=== PATIENT | female | born 1945 | race Caucasian/White ===

== ENCOUNTER → 2017-04-09 | Outpatient (CLI) | payer MEDICARE, BC ==
--- NOTE | 2017-04-09 15:13 | RAD ---
DATE: 04/09/2017 EXAM: MAMMO BOWEN SCREENING BILATERAL HISTORY: 71-year-old female for routine screening mammogram. History of right and left breast biopsy with benign pathology in 1970s. COMPARISON: Prior mammogram from 2015 and 2014. This study was interpreted with the benefit of Computerized Aided Detection (CAD). FINDINGS: Breast Density: DENSE The breast Parenchyma is dense, which could reduce the sensitivity of mammography. Breast parenchyma level density D.. No suspicious calcifications, spiculated mass or architectural distortion. IMPRESSION: No suspicious findings. BI-RADS CATEGORY: 2 BENIGN FINDING(S) RECOMMENDED FOLLOW-UP: 12M 12 MONTH FOLLOW-UP PQRS compliance statement: Patient information was entered into a reminder system with a target due date 04/09/2018 for the next mammogram. Mammography is a sensitive method for finding small breast cancers, but it does not detect them all and is not a substitute for careful clinical examination. A negative mammogram does not negate a clinically suspicious finding and should not result in delay in biopsying a clinically suspicious abnormality. "Our facility is accredited by the [employer] Mammography [employer]."
== END | disposition home or self-care (01) ==
LOC: KCIC MAMMO 09:13
PROVIDERS: ATTEND Obstetrics & Gynecology
DX: Z12.31 Encounter for screening mammogram for malignant neoplasm of breast (principal)
CPT/HCPCS: 77063; G0202; 77067

== ENCOUNTER → 2017-09-09 | Outpatient (CLI) | payer MEDICARE, BC | END | disposition home or self-care (01) | LOC: KCIC 12:17 | DX: J98.11 Atelectasis (principal); R09.89 Other specified symptoms and signs involving the circulatory and respiratory systems; R05 Cough | CPT/HCPCS: 71046 ==

== ENCOUNTER → 2017-09-10 | Outpatient (CLI) | payer MEDICARE, BC | END | disposition home or self-care (01) | LOC: KCIC CT 11:20 | DX: S09.90XA Unspecified injury of head, initial encounter (principal); X58.XXXA Exposure to other specified factors, initial encounter; Y93.89 Activity, other specified; Y92.89 Other specified places as the place of occurrence of the external cause; Y99.8 Other external cause status | CPT/HCPCS: 70450 ==

== ENCOUNTER → 2017-09-16 | Outpatient (CLI) | payer MEDICARE, BC | END | disposition home or self-care (01) | LOC: KCIC 10:26 | DX: M41.85 Other forms of scoliosis, thoracolumbar region (principal); R91.8 Other nonspecific abnormal finding of lung field | CPT/HCPCS: 71046 ==

== ENCOUNTER → 2018-10-23 | Outpatient (CLI) | payer MEDICARE, BC ==
--- NOTE | 2018-10-23 14:58 | KCIC ---
EXAM: Bilateral digital screening mammogram with tomosynthesis. HISTORY: 73-year-old female presents for screening mammography. TECHNIQUE: Full-field digital craniocaudal and mediolateral oblique 2D and 3D tomosynthesis images of both breasts are obtained for evaluation. Computer aided detection with [employer] software version 9.3 was applied. COMPARISON: 04/09/2017 BREAST PARENCHYMAL DENSITY: Level D - Extremely dense. FINDINGS: There is no new suspicious mass, microcalcification or region of architectural distortion. There is stable areas of asymmetry and nodularity within both breasts. There are multiple benign calcifications. IMPRESSION: BI-RADS Category 2: Benign finding(s). RECOMMENDATION: Annual mammography is recommended. If your mammogram demonstrates that you have dense breast tissue, which could hide abnormalities, and if you have other risk factors for breast cancer that have been identified, you might benefit from supplemental screening tests that may be suggested by your ordering physician. Dense breast tissue, in and of itself, is a relatively common condition. This information is not provided to cause undue concern, but rather to raise your awareness and to promote discussion with your physician regarding the presence of other risk factors, in addition to dense breast tissue. A report of your mammography results will be sent to you and your physician. You should contact your physician if you have any questions or concerns regarding this report. Mammography is a sensitive method for finding small breast cancers, but it does not detect them all and is not a substitute for careful clinical examination. A negative mammogram does not negate a clinically suspicious finding and should not result in delay in biopsying a clinically suspicious abnormality. PQRS compliance statement - Patient information was entered into a reminder system with a target due date for the next mammogram. "Our facility is accredited by the [employer] Mammography [employer]." Electronically signed by: Dorothy Costello MD (10/23/2018 2:55 PM) [id number]
== END | disposition home or self-care (01) ==
LOC: KCIC MAMMO 13:53
PROVIDERS: ATTEND Family Medicine
DX: Z12.31 Encounter for screening mammogram for malignant neoplasm of breast (principal)
CPT/HCPCS: 77063; 77067

== ENCOUNTER → 2018-11-11 | Outpatient (CLI) | payer MEDICARE ==
[2018-11-11 10:30] LABS: BASO % 1 % (0-3); EOS # 0.2 x10^3/uL (0.0-0.7); EOS % 4 % (0-3); HEMATOCRIT 39.7 % (36.0-47.0); HEMOGLOBIN 13.4 g/dL (12.0-15.5); LYMPH # 1.3 x10^3/uL (1.0-4.8); LYMPH % 26 % (24-48); MEAN CORPUSCULAR HEMOGLOBIN 31 pg (25-35); MEAN CORPUSCULAR HGB CONC 34 g/dL (31-37); MEAN CORPUSCULAR VOLUME 92 fL (79-100); MONO # 0.4 x10^3/uL (0.0-1.1); MONO % 7 % (0-9); NEUT # 3.1 x10^3uL (1.8-7.7); NEUT % 62 % (31-73); PLATELET COUNT 233 x10^3/uL (140-400); RED BLOOD COUNT 4.33 x10^6/uL (3.50-5.40); RED CELL DISTRIBUTION WIDTH 12.8 % (11.5-14.5)
--- NOTE | 2018-11-11 10:53 | CARD ---
MR#: [id number] Date of Study: 11/11/2018 Ordering Physician: SACHA FRENCH, Referring Physician: SACHA FRENCH, Tech: Noa Neal [facility] APPROVED REPORT EXAM: Two-dimensional and M-mode echocardiogram with Doppler and color Doppler. Other Information Quality : GoodHR: 78bpm Rhythm : NSR INDICATION Atrial Fibrillation 2D DIMENSIONS RVDd2.9 (2.9-3.5cm)Left Atrium(2D)2.9 (1.6-4.0cm) IVSd1.2 (0.7-1.1cm)Aortic Root(2D)2.6 (2.0-3.7cm) LVDd3.7 (3.9-5.9cm)LVOT Diameter1.8 (1.8-2.4cm) PWd0.8 (0.7-1.1cm)LVDs2.3 (2.5-4.0cm) FS (%) 37.3 %SV39.3 ml LVEF(%)68.2 (>50%) M-Mode DIMENSIONS Left Atrium(MM)3.92 (2.5-4.0cm)Aortic Root2.74 (2.2-3.7cm) Aortic Valve AoV Peak Vin.129.3cm/sAoV VTI26.5cm AO Peak GR.6.7mmHgLVOT Peak Vin.106.3cm/s AO Mean GR.4mmHgAVA (VMAX)2.19cm2 WANDY (VTI)2.20cm2 Mitral Valve MV E Bdicvyqr76.2cm/sMV DECEL [id number] MV A Pwfaaprg38.6cm/sE/A Ratio0.8 MV A [id number] Pulmonary Valve PV Peak Ngyoqwqv21.6cm/s LEFT VENTRICLE The left ventricle is normal size. Proximal septal thickening is noted. The left ventricular systolic function is normal and the ejection fraction is within normal range. The Ejection Fraction is 60-65% . There is normal LV segmental wall motion. Transmitral Doppler flow pattern is Grade I-abnormal rela xation pattern. RIGHT VENTRICLE The right ventricle is normal size. There is normal right ventricular wall thickness. The right ventr icular systolic function is normal. ATRIA The left atrium size is normal. The right atrium size is normal. The interatrial septum is intact wit h no evidence for an atrial septal defect or patent foramen ovale as noted on 2-D or Doppler imaging. AORTIC VALVE The aortic valve is normal in structure and function. The aortic valve is trileaflet. Doppler and Col or Flow revealed trace aortic regurgitation. There is no significant aortic valvular stenosis. MITRAL VALVE The mitral valve is normal in structure and function. There is no evidence of mitral valve prolapse. There is no mitral valve stenosis. Doppler and Color-flow revealed trace to mild mitral regurgitation . TRICUSPID VALVE The tricuspid valve is normal in structure and function. Doppler and Color Flow revealed no tricuspid valve regurgitation noted. There is no tricuspid valve prolapse or vegetation. There is no tricuspid valve stenosis. PULMONIC VALVE Doppler and Color Flow revealed no pulmonic valvular regurgitation. There is no pulmonic valvular radhika nosis. GREAT VESSELS The aortic root is normal in size. The ascending aorta is normal in size. The IVC is normal in size a nd collapses >50% with inspiration. PERICARDIAL EFFUSION There is no evidence of significant pericardial effusion. Critical Notification Critical Value: No <Conclusion> The left ventricular systolic function is normal and the ejection fraction is within normal range. Th e Ejection Fraction is 60-65%. There is normal LV segmental wall motion. Signed by : Sacha French, Electronically Approved : 11/11/2018 10:52:17
[2018-11-11 11:02] LABS: ALBUMIN 4.1 g/dL (3.4-5.0); ALBUMIN/GLOBULIN RATIO 1.1 (1.0-1.7); CALCIUM 9.2 mg/dL (8.5-10.1); CREATININE 0.8 mg/dL (0.6-1.0); GFR 70.3; POTASSIUM 4.1 mmol/L (3.5-5.1); TOTAL BILIRUBIN 0.5 mg/dL (0.2-1.0); TOTAL PROTEIN 7.7 g/dL (6.4-8.2)
[2018-11-11 11:03] LABS: CHOLESTEROL/HDL RATIO 4.1
== END | disposition home or self-care (01) ==
LOC: ECHO 09:45
PROVIDERS: ATTEND Internal Medicine Cardiovascular Disease
DX: I48.0 Paroxysmal atrial fibrillation (principal); I10 Essential (primary) hypertension
CPT/HCPCS: 36415; 80053; 80061; 83721; 85025; 93306

== ENCOUNTER → 2019-10-30 | Outpatient (CLI) | payer MEDICARE ==
--- NOTE | 2019-10-30 12:29 | KCIC ---
Bilateral digital screening mammograms with 3-D tomosynthesis: Reason for examination: Routine screening. Comparison is made to previous studies dated back to 12/01/2014. Bilateral mammograms in CC and oblique projections were obtained with 2-D imaging and 3-D tomosynthesis imaging on a Siemens Inspiration unit and reviewed on the workstation. Interpretation was made with the benefit of CAD. The skin and nipples show no abnormalities. No abnormal axillary lymph nodes are seen. The breast parenchyma is extremely dense. (Breast density: Category D.) There continues to be some nodular asymmetry posterior superiorly in the right breast seen best on oblique view which is stable. There are no new dominant masses, suspicious calcifications or architectural distortion. Benign calcifications are present. Impression: No evidence of malignancy. Recommend routine screening. Your patient's mammogram demonstrates that she has dense breast tissue (breast density category C or D), which could hide abnormalities, and if she has other risk factors for breast cancer that have been identified, she might benefit from supplemental screening tests that may be suggested by you as her ordering physician. Dense breast tissue, in and of itself, is a relatively common condition. Therefore, this information is not provided to cause undue concern, but rather to raise your awareness and to promote discussion with your patient regarding the presence of other risk factors, in addition to dense breast tissue. Your patient's mammography results will be sent to her. BI-RAD Category 2: Benign. "Our facility is accredited by the [employer] Mammography Program." This patient's information has been entered into a reminder system for the patient to be notified with the results of her examination and a target date for the next mammogram. Electronically signed by: Mary Lou Post MD (10/30/2019 12:26 PM) [email or web address]
--- NOTE | 2019-10-30 12:34 | KCIC ---
EXAM: Dual energy x-ray absorptiometry (DEXA). HISTORY: Postmenopausal female presents for osteoporosis screening. COMPARISON: 10/07/2012. TECHNIQUE: Dual energy x-ray absorptiometry of the lumbar spine and left hip was performed. Calculation of bone mineral density based on standard deviations above or below the expected young adult normal value (T-score) was completed. FINDINGS: The average bone mineral density in the 1st through 4th lumbar vertebrae is 1.109 g/cmxcm, corresponding with a T-score of 0.6. The average total bone mineral density in the left hip is 0.811 g/cmxcm, corresponding with a T-score of -1.1. There has been a 12.6 percent increase in density of the lumbar spine and 2.0 percent decrease in density of the left hip compared to the prior study. IMPRESSION: 1. Osteopenia measured at the left hip. 2. Normal bone mineral density measured at the lumbar spine. Note: Definitions established by the World Health Organization: 1. Normal: T-score is -1.0 or above. 2. Osteopenia: T-score is between -1.0 and -2.5 . 3. Osteoporosis: T-score is -2.5 or below. Electronically signed by: Dorothy Costello MD (10/30/2019 12:31 PM) [id number]
== END | disposition home or self-care (01) ==
LOC: KCIC DEXA 09:06
PROVIDERS: ATTEND Family Medicine
DX: Z12.31 Encounter for screening mammogram for malignant neoplasm of breast (principal); N64.89 Other specified disorders of breast; M85.88 Other specified disorders of bone density and structure, other site; E05.90 Thyrotoxicosis, unspecified without thyrotoxic crisis or storm; Z78.0 Asymptomatic menopausal state
CPT/HCPCS: 77063; 77067; 77080

== ENCOUNTER → 2020-03-14 | Outpatient (CLI) | payer MEDICARE ==
[2020-03-14 14:19] LABS: ALBUMIN 3.9 g/dL (3.4-5.0); CHOLESTEROL/HDL RATIO 3.2; DIRECT BILIRUBIN 0.1 mg/dL (0.0-0.2); TOTAL BILIRUBIN 0.3 mg/dL (0.2-1.0); TOTAL PROTEIN 7.1 g/dL (6.4-8.2)
== END | disposition home or self-care (01) ==
LOC: LAB 13:24
PROVIDERS: ATTEND Internal Medicine Cardiovascular Disease
DX: E78.5 Hyperlipidemia, unspecified (principal)
CPT/HCPCS: 36415; 80061; 80076; 83721

== ENCOUNTER → 2020-11-01 | Outpatient (CLI) | payer BC, MEDICARE ==
--- NOTE | 2020-11-01 11:08 | KCIC ---
EXAM: Bilateral digital screening mammogram with tomosynthesis. HISTORY: 75-year-old female presents for screening mammography. TECHNIQUE: Full-field digital craniocaudal and mediolateral oblique 2D and 3D tomosynthesis images of both breasts are obtained for evaluation. Computer aided detection was applied. COMPARISON: 10/30/2019 and 10/23/2018 BREAST PARENCHYMAL DENSITY: Level D - Extremely dense. FINDINGS: There is no new suspicious mass, microcalcification or region of architectural distortion. There are stable areas of asymmetry and nodularity within both breasts. There are a few benign calcif ications. IMPRESSION: BI-RADS Category 2: Benign finding(s). RECOMMENDATION: Annual mammography is recommended. If your mammogram demonstrates that you have dense breast tissue, which could hide abnormalities, and if you have other risk factors for breast cancer that have been identified, you might benefit from s upplemental screening tests that may be suggested by your ordering physician. Dense breast tissue, i n and of itself, is a relatively common condition. This information is not provided to cause undue c oncern, but rather to raise your awareness and to promote discussion with your physician regarding th e presence of other risk factors, in addition to dense breast tissue. A report of your mammography re sults will be sent to you and your physician. You should contact your physician if you have any ques tions or concerns regarding this report. Mammography is a sensitive method for finding small breast cancers, but it does not detect them all a nd is not a substitute for careful clinical examination. A negative mammogram does not negate a clin ically suspicious finding and should not result in delay in biopsying a clinically suspicious abnorma lity. PQRS compliance statement - Patient information was entered into a reminder system with a target due date for the next mammogram. "Our facility is accredited by the [employer] Mammography Program." Electronically signed by: Dorothy Costello MD (11/01/2020 11:06 AM) [email or web address]
== END ==
LOC: KCIC MAMMO 09:56
PROVIDERS: ATTEND Family Medicine
DX: Z12.31 Encounter for screening mammogram for malignant neoplasm of breast (principal)
CPT/HCPCS: 77063; 77067

== ENCOUNTER → 2021-04-21 | Outpatient (CLI) | payer MEDICARE ==
--- NOTE | 2021-04-21 11:07 | CARD ---
MR#: [id number] Date of Study: 04/21/2021 Ordering Physician: SACHA FRENCH, Referring Physician: SACHA FRENCH, Tech: Vee Strauss [facility] APPROVED REPORT EXAM: Two-dimensional and M-mode echocardiogram with Doppler and color Doppler. Other Information Quality : AverageHR: 66bpm Rhythm : NSR INDICATION Hypertension/HCVD RISK FACTORS Hypertension 2D DIMENSIONS RVDd2.6 (2.9-3.5cm)Left Atrium(2D)3.4 (1.6-4.0cm) IVSd1.4 (0.7-1.1cm)Aortic Root(2D)2.9 (2.0-3.7cm) LVDd3.1 (3.9-5.9cm)LVOT Diameter1.8 (1.8-2.4cm) PWd1.2 (0.7-1.1cm)LVDs1.4 (2.5-4.0cm) FS (%) 56.3 %SV34.5 ml LVEF(%)87.8 (>50%) Aortic Valve AoV Peak Vin.123.1cm/sAoV VTI24.2cm AO Peak GR.6.1mmHgLVOT Peak Vin.89.0cm/s AO Mean GR.3mmHgAVA (VMAX)1.91cm2 Mitral Valve MV E Mvgxbwsl15.7cm/sMV DECEL [id number] MV A Ztsfspda11.6cm/sE/A Ratio0.8 Pulmonary Valve PV Peak Wpvlefnj57.6cm/s LEFT VENTRICLE The left ventricle is normal size. There is mild concentric left ventricular hypertrophy. The left ve ntricular systolic function is normal. Estimated ejection fraction 65%. There is normal LV segmental wall motion. Transmitral Doppler flow pattern is Grade I-abnormal relaxation pattern. RIGHT VENTRICLE The right ventricle is normal size. There is normal right ventricular wall thickness. The right ventr icular systolic function is normal. ATRIA The left atrium size is normal. The right atrium size is normal. The interatrial septum is intact wit h no evidence for an atrial septal defect or patent foramen ovale as noted on 2-D or Doppler imaging. AORTIC VALVE The aortic valve is normal in structure and function. Doppler and Color Flow revealed no significant aortic regurgitation. There is no significant aortic valvular stenosis. MITRAL VALVE The mitral valve is normal in structure and function. There is no evidence of mitral valve prolapse. There is no mitral valve stenosis. Doppler and Color-flow revealed mild mitral regurgitation. TRICUSPID VALVE The tricuspid valve is normal in structure and function. Doppler and Color Flow revealed trace tricus pid regurgitation. Unable to calculate PAP. There is no tricuspid valve stenosis. PULMONIC VALVE The pulmonary valve is normal in structure and function. Doppler and Color Flow revealed mild pulmoni c valvular regurgitation. GREAT VESSELS The aortic root is normal in size. The ascending aorta is normal in size. The IVC is normal in size a nd collapses >50% with inspiration. PERICARDIAL EFFUSION There is no evidence of significant pericardial effusion. Critical Notification Critical Value: No <Conclusion> The left ventricular systolic function is normal. Estimated ejection fraction 65%. There is normal LV segmental wall motion. Transmitral Doppler flow pattern is Grade I-abnormal relaxation pattern. Mild mitral regurgitation. Trace tricuspid regurgitation. There is no evidence of significant pericardial effusion. Signed by : Jaime Cesar, Electronically Approved : 04/21/2021 11:07:17
== END ==
LOC: ECHO 09:53
PROVIDERS: ATTEND Internal Medicine Cardiovascular Disease
DX: I34.0 Nonrheumatic mitral (valve) insufficiency (principal); I51.7 Cardiomegaly; I48.0 Paroxysmal atrial fibrillation
CPT/HCPCS: 93306